=== PATIENT | female | born 1965 | race African-American/Black ===

== ENCOUNTER 2020-10-27 13:14 | Outpatient (RCR) | payer OTHER, SELFPAY ==
--- NOTE | 2020-10-27 14:30 | PCPTNOTE ---
PHYSICAL THERAPY WHEELCHAIR EVALUATION NOTIFICATION Attending Provider: Rosie Suarez, Patient:Araseli Ford Date of :1965 Araseli participated in a power mobility seating evaluation.? On the power mobility evaluation form provides recommendations and justifications for Araseli at this time.? We will not be working with Araseli in physical therapy beyond this evaluation and a plan of care will not be developed.??? Thank you for referring this patient to [facility]. Please review, sign, date and return this discharge summary ALYSSA. I have been updated about the patient's current status and I agree with discharge from the above service at this time. Referring Physician Date
== END 2020-10-28 13:02 | disposition home or self-care (01) ==
LOC: ANHPT 13:14
PROVIDERS: Visit Provider Family Medicine
DX: M50.90 Cervical disc disorder, unspecified, unspecified cervical region (principal); M17.0 Bilateral primary osteoarthritis of knee; I63.9 Cerebral infarction, unspecified
CPT/HCPCS: 97163